=== PATIENT | female | born 1980 | race Caucasian/White ===

== ENCOUNTER 2018-09-28 08:14 | Outpatient (CLI) | payer BC ==
--- NOTE | 2018-09-28 10:50 | MRI ---
MRI CERVICAL SPINE NONCONTRAST: COMPARISON: No prior comparison imaging. INDICATION: Cervicalgia. FINDINGS: Straightening of normal cervical curvature. There is no acute marrow edema. No evidence of compress ion deformity, acute disk space process, or subluxation. The cervical spinal cord demonstrates appro priate caliber and signal intensity. C1-2, and C2-3 levels are patent. C3-4: There is a left subarticular/left foraminal zone disk protrusion which impinges the left C4 ne rve root and produces moderate left foraminal stenosis. Mild effacement of the ventral subarachnoid space to the left of midline. Right neural foramen is patent. C4-5: Left subarticular/foraminal disk protrusion is present with mild to moderate left foraminal st enosis and crowding of the left C5 nerve root. No significant central canal stenosis. There is righ t side uncinate process hypertrophy with mild right neural foraminal narrowing. C5-6: Left asymmetric disk bulge with mild narrowing of the left neural foramen. No significant nathalie tral canal or right neural foraminal stenosis. C6-7: There is disk-osteophyte formation and uncinate process hypertrophy producing mild left forami nal narrowing. No significant central canal or right foraminal stenosis. C7-T1: No significant stenosis. IMPRESSION: Degenerative disk changes of the cervical spine notably at the C3-4 and C4-5 levels producing left si de nerve root compromise. Correlate for radiculopathic symptoms of these dermatomal distributions. POS: [facility]
== END 2018-09-28 08:15 | disposition home or self-care (01) ==
LOC: SCSMRI 08:14
PROVIDERS: ATTEND Physical Medicine & Rehabilitation
DX: R22.1 Localized swelling, mass and lump, neck (principal); M50.31 Other cervical disc degeneration, high cervical region
CPT/HCPCS: 72141

== ENCOUNTER 2018-12-06 11:39 | Emergency (ER) | payer BC | END 2018-12-06 12:14 | disposition home or self-care (01) | LOC: SCSER 11:39 | DX: S39.012A Strain of muscle, fascia and tendon of lower back, initial encounter (principal); S16.1XXA Strain of muscle, fascia and tendon at neck level, initial encounter; S20.211A Contusion of right front wall of thorax, initial encounter; S40.011A Contusion of right shoulder, initial encounter; V43.52XA Car driver injured in collision with other type car in traffic accident, initial encounter | CPT/HCPCS: 99283 ==